=== PATIENT | male | born 1960 | race Caucasian/White ===

== ENCOUNTER → 2019-08-09 | Outpatient (CLI) | payer OTHER | END | disposition home or self-care (01) | LOC: RAH 09:38 | PROVIDERS: ATTEND Internal Medicine Cardiovascular Disease | DX: Z13.6 Encounter for screening for cardiovascular disorders (principal) | CPT/HCPCS: 75571 ==

== ENCOUNTER 2022-11-27 11:36 | Observation (INO) | payer BC, OTHER ==
[~2022-11-27] VITALS: Ht 193 cm; Wt 120.1 kg
[2022-11-27] MEDS ORDERED: TAMSULOSIN HCL 0.4 MG CAP.ER.24H PO STA (12:07)
[2022-11-27 12:28] LABS: BASOPHILS % (AUTO) 0.5 % (0.0-5.0); EOSINOPHILS % (AUTO) 2.2 % (0.0-8.0); LYMPHOCYTES % (AUTO) 13.6 % (21.0-51.0); MEAN CORPUSCULAR HEMOGLOBIN 26.2 pg (27.0-33.0); MEAN CORPUSCULAR HGB CONC 32.3 g/dL (32.0-36.0); MEAN CORPUSCULAR VOLUME 81.3 fL (79-99); MONOCYTES % (AUTO) 7.1 % (3.0-13.0); NEUTROPHILS % (AUTO) 76.4 % (40.0-77.0); PLATELET COUNT (AUTO) 255 K/uL (130-400); RED BLOOD CELL COUNT(AUTO) 4.92 MIL/uL (4.50-6.20); RED CELL DISTRIBUTION WIDTH 15.6 % (11.0-15.5); WHITE BLOOD COUNT (AUTO) 10.3 K/uL (4.8-10.8)
[2022-11-27] MEDS ORDERED: 0.9%NACL 1000ML 1,000 ML IV ONE (12:30)
[2022-11-27] MEDS ORDERED: KETOROLAC 30MG VIAL (30MG/ML) IVP ONE (12:30)
[2022-11-27 12:31] LABS: APPEARANCE,URINE CLEAR (CLEAR); BILIRUBIN,URINE NEGATIVE (NEGATIVE); COLOR,URINE LIGHT-YELLOW (YELLOW); GLUCOSE, URINE (UA) NEGATIVE (NEGATIVE); KETONES,URINE NEGATIVE (NEGATIVE); LEUKOCYTE ESTERASE ,URINE NEGATIVE Leu/uL (NEGATIVE); NITRATE,URINE NEGATIVE (NEGATIVE); OCCULT BLOOD,URINE SMALL (NEGATIVE); PROTEIN,URINE NEGATIVE (NEGATIVE); UROBILINOGEN,URINE 0.2 mg/dL (0.2-1.0)
[2022-11-27 12:35] LABS: BACTERIA,URINE RARE /HPF (None Seen); MUCUS,URINE RARE LPF (None Seen); WBC,URINE 0-1 /HPF (0-1)
[2022-11-27 12:50] LABS: ALBUMIN 4.2 g/dL (3.5-5.0); POTASSIUM 3.7 mmol/L (3.5-5.1); TOTAL PROTEIN, SERUM 7.6 g/dL (6.0-8.3)
[2022-11-27] MEDS ORDERED: ONDANSETRON 4MG INJ IVP ONE (13:00)
[2022-11-27] MEDS ORDERED: MORPHINE 2 MG SYG IVP ONE ×2 (13:00→14:30)
[2022-11-27] MEDS ORDERED: LACTULOSE 20 GM/30 ML UDCUP PO PRN (15:30)
[2022-11-27] MEDS ORDERED: HYDRALAZINE 20MG/ML VIAL IV PRN (15:30)
[2022-11-27] MEDS ORDERED: ACETAMINOPHEN 325 MG TAB PO PRN (15:30)
[2022-11-27] MEDS ORDERED: CLONIDINE HCL 0.1 MG TABLET PO PRN (15:30)
[2022-11-27] MEDS ORDERED: ACETAMINOPHEN 650 MG SUPPOSITORY RC PRN (15:30)
[2022-11-27] MEDS ORDERED: LABETALOL 20MG SYG IV PRN (15:30)
[2022-11-27] MEDS ORDERED: MORPHINE 2 MG SYG IVP PRN (15:30)
[2022-11-27] MEDS ORDERED: ONDANSETRON 4MG INJ IVP PRN (15:30)
[2022-11-27] MEDS ORDERED: TEMAZEPAM 15 MG CAPSULE PO PRN (15:30)
[2022-11-27] MEDS ORDERED: CEFTRIAXONE 2GM VIAL IVP SCH (15:30)
[2022-11-27] MEDS: LACTATED RINGERS 1000ML 1,000 ML IV SCH (16:26)
[2022-11-27] MEDS: MORPHINE 4 MG SYG IVP PRN ×2 (19:05→23:54)
[2022-11-27] MEDS ORDERED: LISI1TAB51 PO (21:17)
[2022-11-27] MEDS ORDERED: AMLO-258 PO (21:17)
[2022-11-27] MEDS ORDERED: ATOR10TA69 PO (21:17)
[2022-11-27] MEDS ORDERED: ATORVASTATIN 10 MG TABLET PO SCH (21:30)
[2022-11-27] MEDS ORDERED: NON-FORMULARY MEDICATION 1 EACH (Amlodipine Besylate 1 TAB) PO SCH (21:30)
[2022-11-27] MEDS ORDERED: AMLODIPINE 5 MG TAB PO SCH (21:30)
[2022-11-27 22:10] VITALS: BP 119/67
[2022-11-28] VITALS (14 sets, daily range): BP systolic 106–129; BP diastolic 42–62
[2022-11-28] MEDS: LACTATED RINGERS 1000ML 1,000 ML IV SCH (04:50)
[2022-11-28 05:25] LABS: BASOPHILS % (AUTO) 0.9 % (0.0-5.0); EOSINOPHILS % (AUTO) 6.1 % (0.0-8.0); HEMATOCRIT 33.7 % (42-54); LYMPHOCYTES % (AUTO) 26.9 % (21.0-51.0); MEAN CORPUSCULAR HEMOGLOBIN 26.2 pg (27.0-33.0); MEAN CORPUSCULAR VOLUME 81.8 fL (79-99); PLATELET COUNT (AUTO) 206 K/uL (130-400); RED BLOOD CELL COUNT(AUTO) 4.12 MIL/uL (4.50-6.20); RED CELL DISTRIBUTION WIDTH 15.5 % (11.0-15.5); WHITE BLOOD COUNT (AUTO) 6.8 K/uL (4.8-10.8)
[2022-11-28 05:45] LABS: CREATININE 2.5 mg/dL (0.5-1.5); POTASSIUM 3.4 mmol/L (3.5-5.1)
[2022-11-28 06:04] LABS: INR 0.95 (0.85-1.15); PROTHROMBIN TIME 10.4 SEC (9.6-11.6)
[2022-11-28 06:06] LABS: PARTIAL THROMBOPLASTIN TIME 25.1 SEC (26.3-35.5)
[2022-11-28] MEDS: MORPHINE 4 MG SYG IVP PRN (06:28)
[2022-11-28] MEDS ORDERED: POLYETHYLENE GLYCOL 3350 17 GM POWD.PACK PO SCH (09:00)
[2022-11-28] MEDS ORDERED: TAMSULOSIN HCL 0.4 MG CAP.ER.24H PO SCH (09:00)
[2022-11-28] MEDS ORDERED: ENOXAPARIN SODIUM 40 MG/0.4 ML SYRINGE SQ SCH (09:00)
[2022-11-28] MEDS ORDERED: PANTOPRAZOLE 40 MG TAB DR PO SCH (09:00)
[2022-11-28] MEDS ORDERED: FAMOTIDINE 20MG VIAL IV ONE (09:20)
[2022-11-28] MEDS ORDERED: LIDOCAINE PF 100MG/5ML (2%) SYRINGE 5ML ONE (09:24)
[2022-11-28] MEDS ORDERED: SUCCINYLCHOLINE 200MG/10ML SYR ONE (09:24)
[2022-11-28] MEDS ORDERED: FENTANYL CITRATE PF 50 MCG/1 ML 2ML VIAL ONE (09:25)
[2022-11-28] MEDS ORDERED: GLYCOPYRROLATE 1 MG/5 ML SYRINGE ONE (09:25)
[2022-11-28] MEDS ORDERED: MIDAZOLAM HCL 1 MG/ML 2ML VIAL ONE (09:25)
[2022-11-28] MEDS ORDERED: PROPOFOL 10 MG/ML 20ML VIAL IV ONE (09:25)
[2022-11-28] MEDS ORDERED: ROCURONIUM 10MG/1ML SYR 10 MG/ML ML ONE (09:25)
[2022-11-28] MEDS ORDERED: IOHEXOL-350 50ML VIAL IV ONE (09:34)
[2022-11-28] MEDS ORDERED: ONDANSETRON 4MG INJ ONE (09:43)
[2022-11-28] MEDS ORDERED: ISOVUE-370 50ML VIAL IV ONE (09:53)
[2022-11-28] MEDS ORDERED: EPHEDRINE SULFATE 50 MG/ML AMPULE ONE (09:55)
[2022-11-28] MEDS ORDERED: NEOSTIGMINE 5MG/5ML SYR IV ONE (10:21)
[2022-11-28] MEDS ORDERED: TAMS-1 PO (13:13)
== END 2022-11-28 13:40 | disposition home or self-care (01) ==
LOC: EDH 11:36 → EDHIP 15:14 → 3CH 21:50
PROVIDERS: ADMIT Internal Medicine Critical Care Medicine; ATTEND Internal Medicine Critical Care Medicine
DX: N13.2 Hydronephrosis with renal and ureteral calculous obstruction (principal); Z20.822 Contact with and (suspected) exposure to COVID-19; N17.9 Acute kidney failure, unspecified; E87.1 Hypo-osmolality and hyponatremia; I10 Essential (primary) hypertension; K44.9 Diaphragmatic hernia without obstruction or gangrene; E78.5 Hyperlipidemia, unspecified; F10.20 Alcohol dependence, uncomplicated; Z87.442 Personal history of urinary calculi; Z79.899 Other long term (current) drug therapy; Z98.890 Other specified postprocedural states
CPT/HCPCS: 52356; 96374; 96376 ×2; 96375; 99284; 80053; 85025 ×2; 81001; 36415 ×2; 87635; 74176; 93005; 83735; 84100; 80048; 85610; 85730; 82360; 74018; G0378 ×21; J7120 ×2; J0696; J2405 ×2; J2270 ×3; J1885; J7030; A4354; C1758; C2617; Q9967; J3490 ×3; J3010; J0330; J2710; J2001; J2250; J2704; A4358; C1769; A4223; A4657; A4222; A4600